=== PATIENT | female | born 1990 | race Caucasian/White ===

== ENCOUNTER 2019-02-14 00:24 | Emergency (ER) | payer SELFPAY ==
[2019-02-14 00:24] VITALS: BP 155/86
[2019-02-14] MEDS ORDERED: BENZOCAINE ONE 20% MUCOSAL SPRAY. (00:40)
[2019-02-14] MEDS ORDERED: LIDOCAINE 1% Multi-Dose 20 ML VIAL. ONE ×2 (00:40→01:07)
[2019-02-14] MEDS ORDERED: AMOX500C PO (00:55)
--- NOTE | 2019-02-14 00:56 | PHYS DOC ---
Past History Past Medical History: No Pertinent History Drug Use: Marijuana Adult General Chief Complaint Chief Complaint: DENTAL PROBLEM HPI HPI Patient is a 28-year-old female who presents to the emergency department for evaluation of 2 days of dental pain, due to a retained root in tooth #5. The pain radiates up to the right side of her face. She states that she is going to see a dentist on Sunday. She denies any fevers or chills, or difficulty breathing. She has no other complaints. Review of Systems Review of Systems Constitutional: Denies fever or chills [] Respiratory: Denies cough or shortness of breath [] Cardiovascular: No additional information not addressed in HPI [] : Denies possibility of [] Neurologic: Denies headache, focal weakness or sensory changes [] Physical Exam Physical Exam PHYSICAL EXAM: CONSTITUTIONAL: Well developed, well nourished HEAD: normocephalic, atraumatic EENT: PERRL, EOMI. Conjunctivae normal color, sclerae non-icteric; moist mucous membranes. Tooth #5 is absent, with retained portions of the root present, the tooth being dictated to the root. There is tenderness to palpation at this site, without any gingival edema. There is no facial swelling present. NECK: Supple, non-tender; no meningismus. LUNGS: Lungs CTA, breathing even and unlabored. Normal air movement. HEART: Regular rate and rhythm, no murmur EXTREM: Normal ROM; no deformity, no calf tenderness. Normal pulses palpable in all extremities. There is no pedal edema. SKIN: No rash; no diaphoresis NEURO: Alert; normal speech and cognition; CN's grossly intact; strength grossly intact without focal deficit. EKG EKG [] Radiology/Procedures Radiology/Procedures [] Course & Med Decision Making Course & Med Decision Making A middle superior alveolar nerve block was performed, with improvement in the patient's symptoms. I discussed importance of dental follow-up and return precautions. Harry Disclaimer Harry Disclaimer This electronic medical record was generated, in whole or in part, using a voice recognition dictation system. Departure Departure: Impression: Primary Impression: Pain, dental Disposition: HOME, SELF-CARE Condition: STABLE Patient Instructions: Dental Caries, Dental Pain Additional Instructions: Follow-up with your dentist on Sunday as scheduled. Tylenol/Motrin as needed for pain. Scripts Amoxicillin (AMOXICILLIN) 500 Mg Capsule 1 CAP PO TID for Dental Infection, #30 CAP Prov: SABINE KUMAR MD 02/14/19 SABINE KUMAR MD Feb 14, 2019 00:56
[2019-02-14] MEDS ORDERED: AMOXICILLIN 250 MG CAPSULE PO ONE (01:30)
== END 2019-02-14 01:00 | disposition home or self-care (01) ==
LOC: ER 00:24
DX: K08.89 Other specified disorders of teeth and supporting structures (principal)
CPT/HCPCS: 64400; 99284